=== PATIENT | female | born 1955 | race Caucasian/White ===

== ENCOUNTER → 2022-10-04 | Day surgery (SDC) | payer MEDICARE ==
[~2022-10-04] MED LIST: ATORVASTATIN CA20 MG PO; ESTRADIOL42.5 GM VG; PREDNISONE20 M1 PO; VENLAFAXINE HY150 MG PO; WELLBUTRIN XL150 M2 PO; ZITHROMAX500 M2 PO
== END | disposition home or self-care (01) ==
LOC: MSO 09:00
DX: Z12.11 Encounter for screening for malignant neoplasm of colon (principal); K57.30 Diverticulosis of large intestine without perforation or abscess without bleeding; F17.210 Nicotine dependence, cigarettes, uncomplicated; E66.9 Obesity, unspecified
CPT/HCPCS: G0121; 00812; J2704; J3010; J7120

== ENCOUNTER 2023-07-19 13:31 | Emergency (ER) | payer MEDICARE ==
[~2023-07-19] VITALS: Ht 167.6 cm; Wt 90.0 kg
[2023-07-19] MEDS ORDERED: WELLBUTRIN XL150 M2 PO (13:42)
[2023-07-19 14:08] LABS: BASO # 0.06 K/mm3 (0.02-0.10); EOS # 0.12 K/mm3 (0.04-0.40); EOS % 1.9 % (1.0-5.0); HEMATOCRIT 42.5 % (37.0-47.0); HEMOGLOBIN 13.6 g/dL (12.5-16.0); LYMPH# 2.15 K/mm3 (1.50-4.00); MEAN CELL VOLUME 94 fl (78-100); MEAN CORPUSCULAR HEMOGLOBIN 30 pg (27-31); MEAN CORPUSCULAR HGB CONC 32 g/dL (33-37); MEAN PLATELET VOLUME 8.2 fl (7.4-10.4); PLATELET COUNT 367 K/mm3 (130-400); RED BLOOD COUNT 4.51 M/mm3 (4.10-5.30); RED CELL DISTRIBUTION WIDTH 12.8 % (11.5-14.5); WHITE BLOOD COUNT 6.2 K/mm3 (4.8-10.8)
[2023-07-19 14:15] LABS: ALBUMIN 4.1 g/dL (3.4-4.8)
[2023-07-19 14:16] LABS: SODIUM 139 mmol/L (136-145)
[2023-07-19 14:17] LABS: CALCIUM 9.6 mg/dL (8.3-10.5)
[2023-07-19 14:18] LABS: GLUCOSE 116 mg/dL (65-105); TOTAL PROTEIN 6.9 g/dL (6.2-8.1)
[2023-07-19 14:19] LABS: CARBON DIOXIDE 34 mmol/L (23-31)
[2023-07-19 14:23] LABS: AST-SGOT 18 U/L (5-34)
[2023-07-19 14:25] LABS: ALT/SGPT 23 U/L (0-55)
[2023-07-19 14:30] LABS: TROPONIN-I < 0.030 ng/mL (0.00-0.033)
[2023-07-19 14:41] LABS: TOTAL BILIRUBIN 0.28 mg/dL (0.2-1.2)
[2023-07-19 15:30] VITALS: BP 130/76
== END 2023-07-19 15:26 | disposition home or self-care (01) ==
LOC: ED 13:31
PROVIDERS: Nurse Practitioner Family
DX: R07.89 Other chest pain (principal); Z87.891 Personal history of nicotine dependence; Z79.82 Long term (current) use of aspirin